=== PATIENT | male | born 1985 | race Two or more races ===

== ENCOUNTER 2021-04-26 18:10 | Emergency (ER) | payer MEDICAID ==
[~2021-04-26] VITALS: Ht 185.4 cm; Wt 110.0 kg
[2021-04-26] MEDS ORDERED: TOPI15CA11 PO (18:28)
[2021-04-26] MEDS ORDERED: KEPP250 PO (18:28)
[2021-04-26] MEDS ORDERED: ACYC200C MT (19:12)
[2021-04-26] MEDS ORDERED: IBUP-2029 MT (19:12)
[2021-04-26] MEDS ORDERED: LIDO700A15 TP (19:12)
[2021-04-26] MEDS ORDERED: ACYCLOVIR 400 MG TABLET PO ONE (19:15)
[2021-04-26] MEDS ORDERED: IBUPROFEN 600MG TABLET PO ONE (19:15)
[2021-04-26] MEDS ORDERED: LIDOCAINE 5% PATCH TOP SCH (19:15)
[2021-04-26 19:53] VITALS: BP 126/64
== END 2021-04-26 19:54 | disposition home or self-care (01) ==
LOC: ER 18:10
DX: B02.9 Zoster without complications (principal); G40.909 Epilepsy, unspecified, not intractable, without status epilepticus; Z98.890 Other specified postprocedural states; Z87.828 Personal history of other (healed) physical injury and trauma; Z87.891 Personal history of nicotine dependence; Z88.6 Allergy status to analgesic agent
CPT/HCPCS: 99284

== ENCOUNTER 2021-05-26 14:56 | Emergency (ER) | payer MEDICAID, OTHER ==
[~2021-05-26] VITALS: Ht 170.2 cm; Wt 90.0 kg
[~2021-05-26 14:56] MED LIST: ACYC200C MT; IBUP-2029 MT; KEPP250 PO; LIDO700A15 TP; TOPI15CA11 PO
[2021-05-26] MEDS ORDERED: LEVETIRACETAM 500MG PREMIX 100 ML IV ONE (15:45)
[2021-05-26] MEDS ORDERED: LORAZEPAM 2MG/ML CPJ IV PRN (15:45)
[2021-05-26 16:11] LABS: BASOPHILS % 0.8 % (0.0-2.0); CHLORIDE 114 mEq/L (98-107); EOSINOPHILS % 1.8 % (0.0-5.0); HEMATOCRIT. 38.5 % (42.0-52.0); HEMOGLOBIN. 13.2 g/dL (14.0-18.0); LYMPHOCYTES % 19.9 % (20.0-50.0); MEAN CORPUSCULAR HEMOGLOBIN 31.9 pg (28.0-32.0); MONOCYTES % 6.5 % (2.0-8.0); PLATELET 147 x1000/uL (130-400); RED BLOOD CELL COUNT 4.14 mill/uL (4.7-6.1); RED CELL DISTRIBUTION WIDTH 13.7 % (11.6-14.6)
[2021-05-26 16:45] VITALS: BP 117/71
== END 2021-05-26 16:53 | disposition home or self-care (01) ==
LOC: ER 14:56
DX: R56.9 Unspecified convulsions (principal); F17.290 Nicotine dependence, other tobacco product, uncomplicated; Z88.5 Allergy status to narcotic agent; Z88.6 Allergy status to analgesic agent
CPT/HCPCS: 36415; 80053; 85025; 93005; 96365; 99284; 99406; J1953

== ENCOUNTER 2022-04-18 14:14 | Emergency (ER) | payer MEDICAID ==
[~2022-04-18] VITALS: Ht 175.3 cm; Wt 136.0 kg
[~2022-04-18 14:14] MED LIST changes: -ACYC200C MT; +ACYC200C31 MT
[2022-04-18 14:16] VITALS: BP 148/72
[2022-04-18] MEDS ORDERED: ACETAMINOPHEN WITH CODEINE 300/30MG TABLET PO STA (14:28)
[2022-04-18] MEDS ORDERED: LEVETIRACETAM 1000MG PREMIX 100 ML IV ONE (14:30)
[2022-04-18 14:49] LABS: BASOPHILS % 0.8 % (0.0-2.0); HEMATOCRIT. 41.6 % (42.0-52.0); HEMOGLOBIN. 14.1 g/dL (14.0-18.0); MEAN CORPUSCULAR HEMOGLOBIN 30.5 pg (28.0-32.0); MEAN CORPUSCULAR VOLUME 90.1 fL (80.0-94.0); MEAN PLATELET VOLUME 10.3 fl (7.4-10.4); NEUTROPHILS % 65.2 % (40.0-76.0); PLATELET 167 x1000/uL (130-400); RED BLOOD CELL COUNT 4.61 mill/uL (4.7-6.1); RED CELL DISTRIBUTION WIDTH 14.1 % (11.6-14.6)
[2022-04-18 14:58] LABS: CHLORIDE 109 mEq/L (98-107)
[2022-04-18 15:06] LABS: ETHANOL BLOOD < 10 mg/dL
[2022-04-18] MEDS ORDERED: IBUPROFEN 600MG TABLET PO ONE (18:15)
[2022-04-18] MEDS ORDERED: LEVETIRACETAM 1000MG PREMIX 100 ML IV NR (18:30)
== END 2022-04-18 18:34 | disposition home or self-care (01) ==
LOC: ER 14:14
DX: G40.909 Epilepsy, unspecified, not intractable, without status epilepticus (principal); I49.8 Other specified cardiac arrhythmias; Z88.6 Allergy status to analgesic agent
CPT/HCPCS: 36415; 80053; 80320; 85025; 93005; 99285; G0480

== ENCOUNTER 2022-05-24 21:30 | Emergency (ER) | payer MEDICAID ==
[~2022-05-24] VITALS: Ht 177.8 cm; Wt 106.0 kg
[2022-05-24 21:33] VITALS: BP 127/90
== END 2022-05-25 01:05 | disposition left against medical advice (07) ==
LOC: ER 21:30
DX: Z53.21 Procedure and treatment not carried out due to patient leaving prior to being seen by health care provider (principal)

== ENCOUNTER 2023-04-15 00:26 | Emergency (ER) | payer MEDICAID, OTHER ==
[~2023-04-15] VITALS: Ht 177.8 cm; Wt 125.0 kg
[2023-04-15 00:32] VITALS: O2SAT 98
[2023-04-15 02:24] LABS: BASOPHILS % 0.6 % (0.0-2.0); DIFFERENTIAL COMMENT 1; EOSINOPHILS % 4.8 % (0.0-5.0); HEMATOCRIT. 41.4 % (42.0-52.0); HEMOGLOBIN. 14.3 g/dL (14.0-18.0); LYMPHOCYTES % 27.3 % (20.0-50.0); MEAN CORPUSCULAR HEMOGLOBIN 30.4 pg (28.0-32.0); MEAN CORPUSCULAR HGB CONC 34.4 g/dL (31.0-37.0); MEAN CORPUSCULAR VOLUME 88.3 fL (80.0-94.0); MEAN PLATELET VOLUME 10.7 fl (7.4-10.4); MONOCYTES % 7.3 % (2.0-8.0); PLATELET 160 x1000/uL (130-400); RED BLOOD CELL COUNT 4.69 mill/uL (4.7-6.1); WHITE BLOOD COUNT 10.4 x1000/uL (4.5-11.0)
[2023-04-15 02:37] LABS: CHLORIDE 112 mEq/L (98-107); INDEX HEMOLYSI 1 (1-3); INDEX ICTERIC 1 (1-4); INDEX LIPEMIC 1 (1-3); POTASSIUM 3.6 mEq/L (3.5-5.1); SODIUM 141 mEq/L (136-145)
[2023-04-15 02:46] LABS: ALANINE AMINOTRANSFERASE 25 IU/L (13-61); ALBUMIN 3.7 g/dL (3.4-5.0); ASPARTATE AMINOTRANSFERASE 10 IU/L (15-37); BILIRUBIN TOTAL 0.1 mg/dL (0.1-1.0); CALCIUM 8.8 mg/dL (8.5-10.1); CARBON DIOXIDE 25 mEq/L (21-32); CREATININE 0.8 mg/dL (0.6-1.3); GLUCOSE 163 mg/dL (70-105); PROTEIN TOTAL 7.5 g/dL (6.0-8.3); TROPONIN I HIGH SENSITIVITY 6 ng/L (<78); UREA NITROGEN BLOOD 15 mg/dL (7-21)
[2023-04-15] MEDS ORDERED: IBUP-2029 MT (02:52)
[2023-04-15] MEDS ORDERED: IBUPROFEN 600MG TABLET PO ONE (03:00)
[2023-04-15 03:40] VITALS: BP 140/88; PULSE 84; RESP 18; TEMP 98.4
== END 2023-04-15 03:49 | disposition home or self-care (01) ==
LOC: ER 00:26
DX: R07.89 Other chest pain (principal); Z79.899 Other long term (current) drug therapy
CPT/HCPCS: 36415; 71045; 80053; 84484; 85025; 93005; 99285

== ENCOUNTER 2023-06-28 17:39 | Emergency (ER) | payer MEDICAID, OTHER ==
[~2023-06-28] VITALS: Ht 185.4 cm; Wt 137.0 kg
[2023-06-28 18:02] VITALS: BP 120/67; PULSE 88; RESP 17; TEMP 98.9; O2SAT 99
[2023-06-28 21:27] LABS: BASOPHILS % 0.7 % (0.0-2.0); EOSINOPHILS % 4.3 % (0.0-5.0); HEMOGLOBIN. 15.2 g/dL (14.0-18.0); LYMPHOCYTES % 23.4 % (20.0-50.0); MEAN CORPUSCULAR HEMOGLOBIN 29.6 pg (28.0-32.0); MEAN CORPUSCULAR VOLUME 89.8 fL (80.0-94.0); MEAN PLATELET VOLUME 10.2 fl (7.4-10.4); MONOCYTES % 8.2 % (2.0-8.0); NEUTROPHILS % 63.4 % (40.0-76.0); PLATELET 180 x1000/uL (130-400); RED BLOOD CELL COUNT 5.12 mill/uL (4.7-6.1); RED CELL DISTRIBUTION WIDTH 14.4 % (11.6-14.6); WHITE BLOOD COUNT 9.4 x1000/uL (4.5-11.0)
[2023-06-28 21:38] LABS: CHLORIDE 109 mEq/L (98-107); INDEX HEMOLYSI 2 (1-3); INDEX ICTERIC 1 (1-4); INDEX LIPEMIC 1 (1-3); POTASSIUM 4.1 mEq/L (3.5-5.1); SODIUM 139 mEq/L (136-145)
[2023-06-28 21:45] LABS: BILIRUBIN TOTAL 0.3 mg/dL (0.1-1.0); PROTEIN TOTAL 8.2 g/dL (6.0-8.3)
[2023-06-28] MEDS ORDERED: IBUP-2028 MT (22:06)
[2023-06-28 22:13] LABS: ALANINE AMINOTRANSFERASE 36 IU/L (13-61); ALBUMIN 3.8 g/dL (3.4-5.0); ASPARTATE AMINOTRANSFERASE 17 IU/L (15-37); CALCIUM 9.1 mg/dL (8.5-10.1); CARBON DIOXIDE 27 mEq/L (21-32); CREATININE 0.8 mg/dL (0.6-1.3); GLUCOSE 102 mg/dL (70-105); UREA NITROGEN BLOOD 17 mg/dL (7-21)
== END 2023-06-28 22:46 | disposition home or self-care (01) ==
LOC: ER 17:39
DX: R59.9 Enlarged lymph nodes, unspecified (principal); Z79.899 Other long term (current) drug therapy
CPT/HCPCS: 36415; 73080; 80053; 85025; 93971; 99284